=== PATIENT | female | born 1935 | race Caucasian/White ===

== ENCOUNTER 2020-03-31 15:36 | Emergency (ER) | payer MEDICARE, BC ==
[2020-03-31] MEDS ORDERED: Sodium Chloride 0.9% 10 ML Syringe FLUSH PRN (15:57)
--- NOTE | 2020-03-31 16:23 | EDM.PDOC ---
ED HPI GENERAL MEDICAL PROBLEM - General Chief Complaint: General Time Seen by Provider: 03/31/20 15:40 Source of Information: Reports: Patient, EMS History Limitations: Reports: No Limitations - History of Present Illness INITIAL COMMENTS - FREE TEXT/NARRATIVE: Pt. had an episode of visual change this afternoon. She states that she was in her garage, digging through some boxes when the symptoms lasted for approx. a few seconds. She states that she went into the house and called 911. She states that she has never had symptoms like this in the past. Denies any troubles with speech or ambulation. No numbness/tingling in extremities. She states that the symptoms resolved after a very short period of time. Symptoms started around 3 pm. Denies any head trauma. She was not running any motors and was not exposed to any vapors/fumes. She states that she has never had symptoms like this in the past. Denies any palpitations. No chest pain or shortness of breath. She reports that the symptoms completely resolved by the time she arrived to ER. Pt. states that she has a history of carotid artery stenosis, HTN, hypercholesterolemia, and valvular heart disease. According to her Benoit Chart , she has bilateral internal carotid stenosis of 50-69%. Onset: Today Onset Date: 03/31/20 Onset Time: 15:00 Associated Symptoms: Reports: Other (vision change) - Related Data Allergies Allergy/AdvReac Type Severity Reaction Status Date / Time No Known Allergies Allergy Verified 03/31/20 16:04 Home Meds: Home Meds ALPRAZolam [Xanax] 0.25 mg PO Q12H PRN 03/31/20 [History] Albuterol [Proair HFA] 2 puff INH Q4HR PRN 03/31/20 [History] Aspirin [Aspirin EC] 81 mg PO DAILY 03/31/20 [History] Cholecalciferol (Vitamin D3) [Vitamin D3] 2,000 unit PO DAILY 03/31/20 [History] Fluticasone/Salmeterol [Advair 100-50] 1 puff INH BID 03/31/20 [History] Furosemide [Lasix] 40 mg PO DAILY 03/31/20 [History] Potassium Chloride [Klor-Con 10] 10 meq PO DAILY 03/31/20 [History] Rosuvastatin [Crestor] 20 mg PO DAILY 03/31/20 [History] Sertraline [Zoloft] 100 mg PO DAILY 03/31/20 [History] Valsartan/Hydrochlorothiazide [Valsartan-Hctz 80-12.5 mg Tab] 1 each PO DAILY [History] amLODIPine [Norvasc] 5 mg PO DAILY 03/31/20 [History] ED ROS GENERAL - Review of Systems Review Of Systems: See Below Constitutional: Reports: No Symptoms HEENT: Reports: Vertigo, Vision Change Respiratory: Reports: No Symptoms Cardiovascular: Reports: No Symptoms Endocrine: Reports: No Symptoms GI/Abdominal: Reports: No Symptoms : Reports: No Symptoms Musculoskeletal: Reports: No Symptoms Skin: Reports: No Symptoms Neurological: Reports: Dizziness. Denies: Confusion, Headache, Numbness, Paresthesia, Pre-Existing Deficit, Seizure, Syncope, Tingling, Tremors, Trouble Speaking, Difficulty Walking, Weakness, Change in Speech, Gait Disturbance Psychiatric: Reports: No Symptoms Hematologic/Lymphatic: Reports: No Symptoms Immunologic: Reports: No Symptoms ED EXAM, GENERAL - Physical Exam Exam: See Below Exam Limited By: No Limitations General Appearance: Alert, WD/WN, No Apparent Distress Eye Exam: Bilateral Eye: EOMI, Normal Fundi, Normal Inspection, PERRL Ears: Normal External Exam, Normal Canal, Hearing Grossly Normal, Normal TMs Nose: Normal Inspection, Normal Mucosa, No Blood Throat/Mouth: Normal Inspection, Normal Lips, Normal Teeth, Normal Gums, Normal Oropharynx, Normal Voice, No Airway Compromise Head: Atraumatic, Normocephalic Neck: Normal Inspection, Supple, Non-Tender, Full Range of Motion Respiratory/Chest: No Respiratory Distress, Lungs Clear, Normal Breath Sounds, No Accessory Muscle Use, Chest Non-Tender Cardiovascular: Normal Peripheral Pulses, Regular Rate, Rhythm, No Edema, No JVD , No Murmur GI/Abdominal: Normal Bowel Sounds, Soft, Non-Tender, No Organomegaly, No Distention, No Abnormal Bruit, No Mass (Female) Exam: Deferred Rectal (Female) Exam: Deferred Back Exam: Normal Inspection, Full Range of Motion Extremities: Normal Inspection, Normal Range of Motion, Non-Tender, No Pedal Edema, Normal Capillary Refill Neurological: Alert, Oriented, CN II-XII Intact, Normal Cognition, Normal Gait, Normal Reflexes, No Motor/Sensory Deficits, Other (NIH scale 0 during stay in ER.) Psychiatric: Normal Affect, Normal Mood Skin Exam: Warm, Dry, Intact, Normal Color, No Rash Lymphatic: No Adenopathy Course - Vital Signs Last Recorded V/S: Last Vital Signs Temp 36.9 C 03/31/20 15:40 Pulse 78 03/31/20 17:30 Resp 16 03/31/20 17:30 BP 165/66 H 03/31/20 17:30 Pulse Ox 98 03/31/20 17:30 - Orders/Labs/Meds Orders: Active Orders 24 hr Category Date Time Status EKG Documentation Completion [RC] STAT Care 03/31/20 15:58 Active Ang Neck [CT] Stat Exams 03/31/20 16:02 Ordered CULTURE URINE [RM] Stat Lab 03/31/20 16:10 Received Sodium Chloride 0.9% [Saline Flush] Med 03/31/20 15:57 Active 10 ml FLUSH ASDIRECTED PRN Peripheral IV Insertion Adult [OM.PC] Routine Oth 03/31/20 15:58 Ordered Medication Orders Sodium Chloride (Saline Flush) 10 ml FLUSH ASDIRECTED PRN PRN Reason: Keep Vein Open Labs: Laboratory Tests 03/31/20 03/31/20 03/31/20 Range/Units 16:10 16:15 16:15 WBC 7.2 (4.0-10.0) x10^3/uL RBC 4.29 (4.00-5.50) x10^6/uL Hgb 13.7 (12.0-16.0) g/dL Hct 40.2 (33.0-47.0) % MCV 93.7 H (78.0-93.0) fL MCH 31.9 (26.0-32.0) pg MCHC 34.1 (32.0-36.0) g/dL RDW Coeff of Reg 13.1 (10.0-15.0) % Plt Count 219 (130-400) x10^3/uL Add Manual Diff Yes Neutrophils % (Manual) 52 (50-80) % Lymphocytes % (Manual) 34 (25-50) % Monocytes % (Manual) 5 (2-11) % Eosinophils % (Manual) 9 H (0-4) % Platelet Estimate Adequate PT 9.3 L (9.5-12.3) SEC INR 0.8 L (2.0-3.5) Sodium (136-145) mmol/L Potassium (3.5-5.1) mmol/L Chloride (98-107) mmol/L Carbon Dioxide (21-32) mmol/L Anion Gap (10-20) mmol/L BUN (7-18) mg/dL Creatinine (0.55-1.02) mg/dL Est Cr Clr Drug Dosing Estimated GFR (MDRD) Glucose (74-106) mg/dL Calcium (8.5-10.1) mg/dL Corrected Calcium (8.5-10.1) mg/dL Magnesium (1.8-2.4) mg/dL Total Bilirubin (0.2-1.0) mg/dL AST (15-37) U/L ALT (14-59) U/L Alkaline Phosphatase (46-116) U/L Troponin I (<=0.056) ng/mL C-Reactive Protein (<=0.9) mg/dL Total Protein (6.4-8.2) g/dL Albumin (3.4-5.0) g/dL Globulin Albumin/Globulin Ratio Urine Color Yellow (YELLOW) Urine Appearance Clear (CLEAR) Urine pH 5.5 (5.0-8.0) Ur Specific Central 1.010 Urine Protein Negative (NEGATIVE) mg/dL Urine Glucose (UA) Negative (NEGATIVE) mg/dL Urine Ketones Negative (NEGATIVE) mg/dL Urine Occult Blood Negative (NEGATIVE) Urine Nitrite Negative (NEGATIVE) Urine Bilirubin Negative (NEGATIVE) Urine Urobilinogen 0.2 (0.2) EU/dL Ur Leukocyte Esterase Small H (NEGATIVE) Urine RBC 0-5 (NOT SEEN) /HPF Urine WBC 0-5 (NOT SEEN) /HPF Ur Squamous Epith Cells Few H (NEGATIVE) /HPF Amorphous Sediment Few Urine Bacteria Few H (NEGATIVE) /HPF Urine Mucus Few H (NEGATIVE) /LPF 03/31/20 Range/Units 16:15 WBC (4.0-10.0) x10^3/uL RBC (4.00-5.50) x10^6/uL Hgb (12.0-16.0) g/dL Hct (33.0-47.0) % MCV (78.0-93.0) fL MCH (26.0-32.0) pg MCHC (32.0-36.0) g/dL RDW Coeff of Reg (10.0-15.0) % Plt Count (130-400) x10^3/uL Add Manual Diff Neutrophils % (Manual) (50-80) % Lymphocytes % (Manual) (25-50) % Monocytes % (Manual) (2-11) % Eosinophils % (Manual) (0-4) % Platelet Estimate PT (9.5-12.3) SEC INR (2.0-3.5) Sodium 144 (136-145) mmol/L Potassium 3.1 L (3.5-5.1) mmol/L Chloride 104 (98-107) mmol/L Carbon Dioxide 28 (21-32) mmol/L Anion Gap 15.1 (10-20) mmol/L BUN 21 H (7-18) mg/dL Creatinine 1.1 H (0.55-1.02) mg/dL Est Cr Clr Drug Dosing TNP Estimated GFR (MDRD) 47 Glucose 88 (74-106) mg/dL Calcium 9.9 (8.5-10.1) mg/dL Corrected Calcium 9.74 (8.5-10.1) mg/dL Magnesium 2.1 (1.8-2.4) mg/dL Total Bilirubin 0.4 (0.2-1.0) mg/dL AST 15 (15-37) U/L ALT 20 (14-59) U/L Alkaline Phosphatase 67 (46-116) U/L Troponin I < 0.017 (<=0.056) ng/mL C-Reactive Protein 0.2 (<=0.9) mg/dL Total Protein 7.9 (6.4-8.2) g/dL Albumin 4.2 (3.4-5.0) g/dL Globulin 3.7 Albumin/Globulin Ratio 1.14 Urine Color (YELLOW) Urine Appearance (CLEAR) Urine pH (5.0-8.0) Ur Specific Central Urine Protein (NEGATIVE) mg/dL Urine Glucose (UA) (NEGATIVE) mg/dL Urine Ketones (NEGATIVE) mg/dL Urine Occult Blood (NEGATIVE) Urine Nitrite (NEGATIVE) Urine Bilirubin (NEGATIVE) Urine Urobilinogen (0.2) EU/dL Ur Leukocyte Esterase (NEGATIVE) Urine RBC (NOT SEEN) /HPF Urine WBC (NOT SEEN) /HPF Ur Squamous Epith Cells (NEGATIVE) /HPF Amorphous Sediment Urine Bacteria (NEGATIVE) /HPF Urine Mucus (NEGATIVE) /LPF Meds: Medications Generic Name Dose Route Start Last Admin Trade Name Freq PRN Reason Stop Dose Admin Sodium Chloride 10 ml 03/31/20 15:57 Saline Flush FLUSH ASDIRECTED PRN Keep Vein Open Discontinued Medications Generic Name Dose Route Start Last Admin Trade Name Freq PRN Reason Stop Dose Admin Iopamidol 100 ml 03/31/20 17:41 Isovue-300 (61%) IVPUSH 03/31/20 17:42 ONETIME ONE - Radiology Interpretation Free Text/Narrative:: CT brain without contrast obtained, negative for acute pathology. Departure - Departure Time of Disposition: 19:53 Disposition: DC/Tfer to [facility] 02 Clinical Impression: Vision changes, UTI (urinary tract infection) - Discharge Information Forms: ED Department Discharge Sepsis Event Note - Evaluation Sepsis Screening Result: No Definite Risk - Focused Exam Vital Signs: Vital Signs Temp Pulse Resp BP Pulse Ox 03/31/20 17:30 78 16 165/66 H 98 03/31/20 16:30 69 16 164/74 H 97 03/31/20 15:40 36.9 C 87 16 165/71 H 96 Date Exam was Performed: 03/31/20 Time Exam was Performed: 19:23 - Problem List Review Problem List Initiated/Reviewed/Updated: Yes - My Orders Last 24 Hours: My Active Orders 03/31/20 15:57 Sodium Chloride 0.9% [Saline Flush] 10 ml FLUSH ASDIRECTED PRN 03/31/20 15:58 EKG Documentation Completion [RC] STAT Peripheral IV Insertion Adult [OM.PC] Routine 03/31/20 16:02 Ang Neck [CT] Stat 03/31/20 16:10 CULTURE URINE [RM] Stat - Assessment/Plan Last 24 Hours: My Active Orders 03/31/20 15:57 Sodium Chloride 0.9% [Saline Flush] 10 ml FLUSH ASDIRECTED PRN 03/31/20 15:58 EKG Documentation Completion [RC] STAT Peripheral IV Insertion Adult [OM.PC] Routine 03/31/20 16:02 Ang Neck [CT] Stat 03/31/20 16:10 CULTURE URINE [RM] Stat Plan: Spoke at length with Dr. Arenas. CTA head and neck were performed. There was approx. 80-90% stenosis of proximal cervical internal carotid arteries. No obvious large vessel occlusion of the brain. Dr. Arenas advised transfer for further workup, including echo and MRA. Discussed findings with patient and family. She will be transported via [facility] ground ambulance. Pt. was treated for UTI with IV rocephin in ER. NIH scale was 0 at time of discharge. She was asymptomatic during her lengthy stay in ER.
[2020-03-31 16:47] LABS: CHLORIDE,CL 104 mmol/L (98-107); SODIUM,NA 144 mmol/L (136-145)
[2020-03-31 16:53] LABS: ANION GAP 15.1 mmol/L (10-20)
--- NOTE | 2020-03-31 17:04 | CT ---
[id number] CT/CT Head WO IV EXAM: CT Head WO IV CLINICAL DATA: VISUAL CHANGE COMPARISON: NO PREVIOUS SIMILAR EXAM IS AVAILABLE FOR COMPARISON. FINDINGS: There is no mass or mass effect. There is no hemorrhage or hydrocephalus. There are no extra-axial fluid collections. There are no sites of abnormal attenuation. IMPRESSION: NO PLAIN CT EVIDENCE OF ACUTE INTRACRANIAL PROCESS. Adan Aguilar MD 03/31/20 [id number] Thank you for allowing us to participate in the care of your patient.
[2020-03-31] MEDS: Iopamidol 612 MG/ML 100 ML Bottle IVPUSH ONE (18:30)
--- NOTE | 2020-03-31 18:45 | CT ---
[id number] CT/CTA Head Neck Exam: CTA Head Neck Clinical Data: NEUROLOGIC DEFICIT COMPARISON: CORRELATION IS MADE WITH THE EARLIER PLAIN CT BRAIN FINDINGS: There is no intracranial large vessel occlusion seen. 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 Adan Aguilar MD 03/31/20 [id number] Thank you for allowing us to participate in the care of your patient.
[2020-03-31] MEDS: cefTRIAXone 1 GM Vial IVPUSH ONE (19:39)
== END 2020-03-31 20:05 | disposition short-term general hospital (02) ==
LOC: VM.ED 15:36
DX: H53.8 Other visual disturbances (principal); N39.0 Urinary tract infection, site not specified; Z79.82 Long term (current) use of aspirin; Z79.899 Other long term (current) drug therapy
CPT/HCPCS: 36415; 70450; 70496; 70498; 80053; 81001; 83735; 84484; 85025; 85610; 86140; 87086; 93005; 96374; 99284-GF; 99285-25; J0696; Q9967